=== PATIENT | male | born 1995 | race Caucasian/White ===

== ENCOUNTER 2019-04-05 00:08 | Emergency (ER) | payer OTHER | END 2019-04-05 02:14 | disposition other institution (70) | LOC: ED 00:08 | DX: Z02.89 Encounter for other administrative examinations (principal) ==

== ENCOUNTER 2019-04-05 00:08 | Emergency (ER) | payer OTHER ==
[~2019-04-05] VITALS: Ht 165.1 cm; Wt 68.0 kg
[2019-04-05 00:24] VITALS: Ht 165.1 cm; Wt 68.0 kg
[2019-04-05 02:14] VITALS: BP 130/65
== END 2019-04-05 02:14 | disposition other institution (70) ==
LOC: ED 00:08
DX: S06.0X0A Concussion without loss of consciousness, initial encounter (principal); F19.10 Other psychoactive substance abuse, uncomplicated; V49.9XXA Car occupant (driver) (passenger) injured in unspecified traffic accident, initial encounter; Y93.89 Activity, other specified; Y92.488 Other paved roadways as the place of occurrence of the external cause; Y99.8 Other external cause status